=== PATIENT | male | born 1950 | race Caucasian/White ===

== ENCOUNTER 2019-07-22 06:30 | Day surgery (SDC) | payer OTHER ==
[2019-07-17 14:26] VITALS: BMI 48.9
[2019-07-22] MEDS: TROPICAMIDE 1% OPHTH SOLN 15 ML BOTTLE ONE ×3 (07:00→07:10)
[2019-07-22] MEDS: CIPROFLOXACIN 0.3% EYE DROPS 5 ML BOTTLE ONE ×3 (07:00→07:10)
[2019-07-22] MEDS: PHENYLEPHRINE 2.5% OPHTH SOLN 15 ML BOTTLE ONE ×3 (07:00→07:10)
[2019-07-22] MEDS: CYCLOPENTOLATE 2% OPHTH SOLN 2 ML BOTTLE ONE ×3 (07:00→07:10)
[2019-07-22] MEDS ORDERED: LIDOCAINE 1% P/F 10 MG/ML VIAL ONE (07:20)
[2019-07-22] MEDS ORDERED: TETRACAINE 0.5% OPHTH SOLN 2 ML BOTTLE ONE (07:20)
[2019-07-22] MEDS ORDERED: BSS (NA/CA/MG/K) BALANCED SALT SOLUTION OPHTH SOLN 15 ML BOTTLE ONE (07:20)
[2019-07-22] MEDS ORDERED: NEO/POLYMYX B SULF/DEXAMETH OPHTHALMIC 5ML BOTTLE ONE (07:21)
[2019-07-22] MEDS ORDERED: EPINEPHrine/PF 1 MG/1 ML (1:1,000) AMPULE ONE (07:21)
[2019-07-22] MEDS ORDERED: CARBACHOL 0.01% INTRA-OCULAR 1.5 ML VIAL ONE (07:21)
[2019-07-22] MEDS ORDERED: MIDAZOLAM HCL 2 MG/2 ML SINGLE DOSE VIAL ONE (07:58)
[2019-07-22 09:12] VITALS: BP 122/68; PULSE 65; TEMP 98
--- NOTE | 2019-07-22 13:55 | OP ---
DATE OF OPERATION: 07/22/2019 OPERATIVE PROCEDURE: Lens Phacoemulsification with Posterior Chamber Intraocular Lens Placement Left Eye. PREOPERATIVE DIAGNOSIS: Visually Significant Cataract of Left Eye. POSTOPERATIVE DIAGNOSIS: Visually Significant Cataract of Left Eye. SURGEON: Esau Camargo M.D. ANESTHESIA: MAC PROCEDURE: The patient was brought to the operating room and placed under monitored anesthesia care by Anesthesia. A drop of Tetracaine was then placed over the left eye. The patient was then prepped and draped in the usual sterile manner. A speculum was then placed over the left eye. The eye was then well irrigated with copious amounts of BSS (balanced salt solution). The operating microscope was then moved into position. A paracentesis was performed using a 15 degree blade. At this point 0.5 mL of 1% preservative-free lidocaine was injected into the anterior chamber. Amvisc plus was then injected into the anterior chamber. A clear corneal incision was then formed using a 2.2 mm keratome. A capsulorrhexis was then performed in a continuous circular fashion beginning with a cystotome, completed with an Utratas forceps. Hydrodissection was then performed using BSS on a cannula. The phaco probe was then introduced through the corneal wound and the cataract was removed using the phaco chop technique. Approximately 3 seconds of absolute phaco time was used. The remaining cortex was then removed using irrigation and aspiration with an I/A probe. The capsule was then filled with regular Amvisc and the capsule was noted to be intact. A previously selected foldable posterior chamber intraocular lens was then injected into the capsule through the corneal wound using a lens injector. It was then dialed into position using a Sinskey hook. The Amvisc was then removed using irrigation and aspiration. Miostat was then injected through the paracentesis to constrict the pupil. The paracentesis and corneal wound were then hydrated and noted to be water tight. A drop of Maxitrol was then placed over the eye. The speculum was removed and clear shield was taped over the eye. The patient tolerated the procedure well and there were no surgical complications. The patient was asked to follow up in my office the next day. ESAU CAMARGO M.D. [id number]
== END 2019-07-22 09:14 | disposition home or self-care (01) ==
LOC: FASU 06:30
PROVIDERS: ATTEND Ophthalmology
PROC: 08RK3JZ Replacement of Left Lens with Synthetic Substitute, Percutaneous Approach (ICD-10-PCS; principal; 2019-07-22 08:10)
DX: H26.8 Other specified cataract (principal)

== ENCOUNTER 2019-08-12 06:55 | Day surgery (SDC) | payer OTHER ==
[2019-08-11 11:11] VITALS: BMI 48.9
[2019-08-12] MEDS: TROPICAMIDE 1% OPHTH SOLN 15 ML BOTTLE ONE ×3 (07:30→07:40)
[2019-08-12] MEDS: PHENYLEPHRINE 2.5% OPHTH SOLN 15 ML BOTTLE ONE ×3 (07:30→07:40)
[2019-08-12] MEDS: CYCLOPENTOLATE HCL 1% OPHTH SOLN 2 ML BOTTLE ONE ×3 (07:30→07:40)
[2019-08-12] MEDS: CIPROFLOXACIN 0.3% EYE DROPS 5 ML BOTTLE ONE ×3 (07:30→07:40)
[2019-08-12] MEDS ORDERED: NEO/POLYMYX B SULF/DEXAMETH OPHTHALMIC 5ML BOTTLE ONE (07:31)
[2019-08-12] MEDS ORDERED: CARBACHOL 0.01% INTRA-OCULAR 1.5 ML VIAL ONE (07:31)
[2019-08-12] MEDS ORDERED: LIDOCAINE 1% P/F 10 MG/ML VIAL ONE (07:31)
[2019-08-12] MEDS ORDERED: BSS (NA/CA/MG/K) BALANCED SALT SOLUTION OPHTH SOLN 15 ML BOTTLE ONE (07:31)
[2019-08-12] MEDS ORDERED: MIDAZOLAM HCL 2 MG/2 ML SINGLE DOSE VIAL ONE ×2 (08:43→08:57)
[2019-08-12 09:30] VITALS: TEMP 97.9
--- NOTE | 2019-08-12 09:53 | OP ---
DATE OF OPERATION: 08/12/2019 OPERATIVE PROCEDURE: Lens phacoemulsification with posterior chamber intraocular lens placement, right eye. PREOPERATIVE DIAGNOSIS: Visually significant cataract of right eye. POSTOPERATIVE DIAGNOSIS: Visually significant cataract of right eye. SURGEON: Esau Camargo MD ANESTHESIA: MAC. PROCEDURE: The patient was brought to the operating room and placed under monitored anesthesia care by Anesthesia. A drop of tetracaine was then placed over the right eye. The patient was then prepped and draped in the usual sterile manner. A speculum was then placed over the right eye. The eye was then well irrigated with copious amounts of BSS (balanced salt solution). The operating microscope was then moved into position. A paracentesis was performed using a 15-degree blade. At this point 0.5 mL of 1% preservative- free lidocaine was injected into the anterior chamber. Amvisc Plus was then injected into the anterior chamber. A clear corneal incision was then formed using a 2.2-mm keratome. A capsulorrhexis was then performed in a continuous circular fashion beginning with a cystotome completed with an Utratas forceps. Hydrodissection was then performed using BSS on a cannula. The phaco probe was then introduced through the corneal wound and the cataract was removed using the phaco chop technique. Approximately 3 seconds of absolute phaco time was used. The remaining cortex was then removed using irrigation and aspiration with an I/A probe. The capsule was then filled with regular Amvisc and the capsule was noted to be intact. A previously selected foldable posterior chamber intraocular lens was then injected into the capsule through the corneal wound using a lens injector. It was then dialed into position using a Sinskey hook. The Amvisc was then removed using irrigation and aspiration. Miostat was then injected through the paracentesis to constrict the pupil. The paracentesis and corneal wound were then hydrated and noted to be watertight. A drop of Maxitrol was then placed over the eye. The speculum was removed and clear shield was taped over the eye. The patient tolerated the procedure well and there were no surgical complications. The patient was asked to follow up in my office the next day. ESAU CAMARGO M.D. [id number]
[2019-08-12 09:57] VITALS: BP 120/69; PULSE 88
== END 2019-08-12 10:05 | disposition home or self-care (01) ==
LOC: FASU 06:55
PROVIDERS: ATTEND Ophthalmology
PROC: 08RJ3JZ Replacement of Right Lens with Synthetic Substitute, Percutaneous Approach (ICD-10-PCS; principal; 2019-08-12 09:01)
DX: H26.8 Other specified cataract (principal)

== ENCOUNTER 2022-07-18 04:19 | Day surgery (SDC) | payer OTHER ==
[2022-07-13 14:46] VITALS: BMI 40.3
[2022-07-18] MEDS ORDERED: LIDOCAINE HCL 2% JELLY 11 ML TP ONE (13:34)
[2022-07-18] MEDS ORDERED: PROPOFOL 20 ML ONE (13:59)
[2022-07-18] MEDS ORDERED: MIDAZOLAM HCL 2 MG/2 ML SINGLE DOSE VIAL ONE (13:59)
[2022-07-18] MEDS ORDERED: ONDANSETRON 4 MG/2 ML VIAL IVPUSH PRN (14:24)
[2022-07-18] MEDS ORDERED: oxyCODONE HCL 5 MG TABLET PO PRN (14:24)
[2022-07-18] MEDS ORDERED: ceFAZolin SODIUM 1 GM VIAL IVPB ONE (14:26)
[2022-07-18] MEDS ORDERED: ceFAZolin SODIUM 1 GM VIAL ONE (14:27)
[2022-07-18] MEDS ORDERED: LACTATED RINGERS SOLUTION 1,000 ML IV SCH (14:30)
[2022-07-18 18:45] VITALS: RESP 18
[2022-07-18 18:55] VITALS: BP 150/70; PULSE 78; TEMP 98
== END 2022-07-18 18:00 | disposition home or self-care (01) ==
LOC: JASU-SURG 04:19
PROVIDERS: ATTEND Urology
PROC: 0T7D8DZ Dilation of Urethra with Intraluminal Device, Via Natural or Artificial Opening Endoscopic (ICD-10-PCS; principal; 2022-07-18 14:00)
DX: N40.0 Benign prostatic hyperplasia without lower urinary tract symptoms (principal)
CPT/HCPCS: C9740; L8699; 94760

== ENCOUNTER 2023-01-08 09:27 | Day surgery (SDC) | payer OTHER ==
[2023-01-08] MEDS ORDERED: CEFAZOLIN 2 GM in DEXTROSE 5%-WATER - 50 ML IVPB ONE (09:35)
[2023-01-08] MEDS ORDERED: CELECOXIB 200 MG CAPSULE PO ONE (09:35)
[2023-01-08] MEDS ORDERED: TRANEXAMIC ACID 1000 MG/10 ML VIAL IVPUSH ONE (09:35)
[2023-01-08 10:06] VITALS: BMI 41.0
[2023-01-08] MEDS ORDERED: VANCOMYCIN 1,000 MG VIAL (RESTRICTED TO ID ONLY) ONE (10:13)
[2023-01-08] MEDS ORDERED: ceFAZolin SODIUM 1 GM VIAL ONE ×3 (10:13→12:20)
[2023-01-08] MEDS ORDERED: CELECOXIB 200 MG CAPSULE ONE (10:18)
[2023-01-08] MEDS ORDERED: MIDAZOLAM HCL 2 MG/2 ML SINGLE DOSE VIAL ONE (10:22)
[2023-01-08] MEDS ORDERED: BUPIVACAINE HCL/PF 0.5% (5 MG/ML) 30 ML VIAL IJ ONE (10:22)
[2023-01-08] MEDS ORDERED: ACETAMINOPHEN INJECTION 100 ML IVPB ONE (10:23)
[2023-01-08] MEDS ORDERED: DEXAMETHASONE SOD PHOSPHATE/PF 10 MG/ML SDV ONE (10:23)
[2023-01-08] MEDS ORDERED: ACETAMINOPHEN 325 MG TABLET (FP) PO PRN (10:25)
[2023-01-08] MEDS ORDERED: oxyCODONE HCL 5 MG TABLET PO PRN (10:25)
[2023-01-08] MEDS ORDERED: ONDANSETRON 4 MG/2 ML VIAL IVPUSH PRN (10:25)
[2023-01-08] MEDS ORDERED: LACTATED RINGERS SOLUTION 1,000 ML IV SCH (10:30)
[2023-01-08] MEDS ORDERED: PROPOFOL 60 ML ONE (12:12)
[2023-01-08] MEDS ORDERED: TRANEXAMIC ACID 1000 MG/10 ML VIAL ONE (12:17)
[2023-01-08] MEDS ORDERED: KETOROLAC TROMETHAMINE 30 MG/1 ML VIAL ONE (12:31)
[2023-01-08] MEDS ORDERED: DEXAMETHASONE SOD PHOSPHATE 4 MG/1 ML VIAL ONE (12:31)
[2023-01-08] MEDS ORDERED: ONDANSETRON 4 MG/2 ML VIAL ONE (12:31)
[2023-01-08] MEDS ORDERED: VANCOMYCIN 1,000 MG VIAL (RESTRICTED TO ID ONLY) IVPB ONE (13:21)
[2023-01-08] MEDS: oxyCODONE HCL 5 MG TABLET PO PRN ×2 (18:02→21:28)
[2023-01-08] MEDS: CEFAZOLIN SODIUM 2 GM in DEXTROSE 5%-WATER 100 ML IVPB SCH (20:55)
[2023-01-08] MEDS: SENNOSIDES/DOCUSATE COMBO (SENNA PLUS) TABLET (UD) PO SCH (21:29)
[2023-01-08] MEDS ORDERED: FAMOTIDINE 20 MG TABLET PO SCH (22:00)
[2023-01-08] MEDS: OXYMETAZOLINE 0.05% NASAL SOLUTION 15 ML BOTTLE NS SCH (22:22)
[2023-01-09] MEDS: oxyCODONE HCL 5 MG TABLET PO PRN ×3 (01:26→12:31)
[2023-01-09] MEDS: CEFAZOLIN SODIUM 2 GM in DEXTROSE 5%-WATER 100 ML IVPB SCH (05:00)
[2023-01-09 08:19] LABS: HEMATOCRIT 41.9 % (35.4-49); HEMOGLOBIN 14.2 G/dL (11.7-16.9); MCH 29.9 pg (25.7-33.7); MCHC 33.8 g/dl (32.0-35.9); MEAN CELL VOLUME 88.3 fl (80-96); MEAN PLT VOLUME 8.1 fl (7.5-11.1); PLATELET COUNT 199.6 10^3/uL (134-434); RBC 4.74 10^6/uL (4.00-5.60); RDW 14.6 % (11.9-15.9); WHITE BLOOD COUNT 10.9 10^3/uL (4.0-10.8)
[2023-01-09] MEDS: SENNOSIDES/DOCUSATE COMBO (SENNA PLUS) TABLET (UD) PO SCH (09:19)
[2023-01-09] MEDS: OXYMETAZOLINE 0.05% NASAL SOLUTION 15 ML BOTTLE NS SCH (09:22)
[2023-01-09] MEDS ORDERED: [UNRECOGNIZED DRUG - OTHER] PO SCH (10:00)
[2023-01-09] MEDS ORDERED: MULTIVITAMINS (DAILY MVI) TABLET (FP) PO SCH (10:00)
[2023-01-09] MEDS ORDERED: FLUTICASONE/UMECLIDIN/VILANTER(200-62.5-25 TRELEGY ELLIPTA) INAHLER IH SCH (10:00)
[2023-01-09] MEDS ORDERED: IRBESARTAN PO SCH (10:00)
[2023-01-09] MEDS ORDERED: PANTOPRAZOLE 40 MG TABLET PO SCH (10:00)
[2023-01-09] MEDS ORDERED: APIXABAN 5 MG TABLET PO SCH (10:00)
[2023-01-09] MEDS ORDERED: LOSARTAN 50MG/HCTZ 12.5MG 1 TAB PO SCH (10:00)
[2023-01-09] MEDS ORDERED: HYDROCHLOROTHIAZIDE PO SCH (10:00)
[2023-01-09 17:40] VITALS: BP 128/70; PULSE 73; RESP 19; TEMP 98.8
== END 2023-01-09 18:41 | disposition home health service (06) ==
LOC: FASUSAT 09:27 → FM/S 15:56 → FASUSAT 01-09 18:41
PROVIDERS: ATTEND Orthopaedic Surgery
PROC: 8E0Y0CZ Robotic Assisted Procedure of Lower Extremity, Open Approach (ICD-10-PCS; 2023-01-08)
PROC: 0SRD0J9 Replacement of Left Knee Joint with Synthetic Substitute, Cemented, Open Approach (ICD-10-PCS; principal; 2023-01-08 12:26)
DX: M17.12 Unilateral primary osteoarthritis, left knee (principal)
CPT/HCPCS: 20985; 27447; C1776; S2900; 36415; 73560-TC-LT-FY; 85027; 94760; 97010-GP; 97116-GP; 97162-GP; C1713

== ENCOUNTER 2023-05-14 07:34 | Day surgery (SDC) | payer OTHER ==
[2023-05-07 11:55] VITALS: BMI 36.2
[2023-05-14] MEDS ORDERED: MIDAZOLAM HCL 2 MG/2 ML SINGLE DOSE VIAL ONE (08:24)
[2023-05-14] MEDS ORDERED: BUPIVACAINE HCL/PF 0.5% (5MG/ML) 10 ML VIAL ONE (08:24)
[2023-05-14] MEDS ORDERED: BUPIVACAINE LIPOSOME/PF (EXPAREL) 266 MG/20 ML VIAL ONE (08:24)
[2023-05-14] MEDS ORDERED: ceFAZolin SODIUM 1 GM VIAL ONE ×2 (08:26→09:28)
[2023-05-14] MEDS ORDERED: VANCOMYCIN 1,000 MG VIAL (RESTRICTED TO ID ONLY) ONE (08:26)
[2023-05-14] MEDS ORDERED: DEXAMETHASONE SOD PHOSPHATE 4 MG/1 ML VIAL ONE (09:30)
[2023-05-14] MEDS ORDERED: ONDANSETRON 4 MG/2 ML VIAL ONE (09:30)
[2023-05-14] MEDS ORDERED: CEFAZOLIN 2 GM in DEXTROSE 5%-WATER - 50 ML IVPB ONE (09:45)
[2023-05-14] MEDS ORDERED: CELECOXIB 200 MG CAPSULE PO ONE (09:45)
[2023-05-14] MEDS ORDERED: VANCOMYCIN 1,000 MG VIAL (RESTRICTED TO ID ONLY) IVPB ONE (10:36)
[2023-05-14] MEDS ORDERED: TRANEXAMIC ACID 1000 MG/10 ML VIAL IVPUSH ONE (10:45)
[2023-05-14] MEDS ORDERED: LACTATED RINGERS SOLUTION 1,000 ML IV SCH (11:15)
[2023-05-14] MEDS ORDERED: ONDANSETRON 4 MG/2 ML VIAL IVPUSH PRN (11:39)
[2023-05-14] MEDS ORDERED: ACETAMINOPHEN 1000 MG/100 ML BAG IVPB ONE (11:40)
[2023-05-14] MEDS ORDERED: oxyCODONE HCL 5 MG TABLET PO PRN (11:40)
[2023-05-14] MEDS ORDERED: ACETAMINOPHEN INJECTION 100 ML IVPB ONE (11:55)
[2023-05-14] MEDS ORDERED: KETOROLAC TROMETHAMINE 30 MG/1 ML VIAL ONE (12:15)
[2023-05-14] MEDS: KETOROLAC TROMETHAMINE 30 MG/1 ML VIAL IVPUSH SCH ×2 (12:19→17:10)
[2023-05-14] MEDS: ACETAMINOPHEN 500 MG TABLET (FP) PO SCH ×2 (17:10→23:42)
[2023-05-14] MEDS: CEFAZOLIN SODIUM 2 GM in DEXTROSE 5%-WATER 100 ML IVPB SCH (17:11)
[2023-05-14] MEDS ORDERED: FAMOTIDINE 20 MG TABLET PO SCH (22:00)
[2023-05-14] MEDS: oxyCODONE HCL 10 MG SUSTAINED ACTING TABLET PO SCH (22:01)
[2023-05-14] MEDS: SENNOSIDES/DOCUSATE COMBO (SENNA PLUS) TABLET (UD) PO SCH (22:03)
[2023-05-15 00:19] VITALS: RESP 18
[2023-05-15] MEDS: CEFAZOLIN SODIUM 2 GM in DEXTROSE 5%-WATER 100 ML IVPB SCH (02:11)
[2023-05-15] MEDS: oxyCODONE HCL 5 MG TABLET PO PRN ×2 (06:15→12:43)
[2023-05-15] MEDS: ACETAMINOPHEN 500 MG TABLET (FP) PO SCH ×2 (06:16→12:42)
[2023-05-15 07:53] LABS: HEMATOCRIT 39.5 % (35.4-49); MCHC 32.9 g/dl (32.0-35.9); MEAN PLT VOLUME 7.9 fl (7.5-11.1); PLATELET COUNT 203.9 10^3/uL (134-434); RBC 4.49 10^6/uL (4.00-5.60); RDW 15.3 % (11.9-15.9); WHITE BLOOD COUNT 8.3 10^3/uL (4.0-10.8)
[2023-05-15] MEDS ORDERED: [UNRECOGNIZED DRUG - OTHER] PO SCH (10:00)
[2023-05-15] MEDS ORDERED: HYDROCHLOROTHIAZIDE PO SCH (10:00)
[2023-05-15] MEDS ORDERED: APIXABAN 5 MG TABLET PO SCH (10:00)
[2023-05-15] MEDS ORDERED: IRBESARTAN PO SCH (10:00)
[2023-05-15] MEDS ORDERED: LOSARTAN 50MG/HCTZ 12.5MG 1 TAB PO SCH (10:00)
[2023-05-15] MEDS ORDERED: FLUTICASONE/UMECLIDIN/VILANTER(200-62.5-25 TRELEGY ELLIPTA) INAHLER IH SCH (10:00)
[2023-05-15] MEDS: oxyCODONE HCL 10 MG SUSTAINED ACTING TABLET PO SCH (10:05)
[2023-05-15] MEDS: SENNOSIDES/DOCUSATE COMBO (SENNA PLUS) TABLET (UD) PO SCH (10:05)
[2023-05-15 12:56] VITALS: BP 134/53; PULSE 68; TEMP 98.1
== END 2023-05-15 16:07 | disposition home or self-care (01) ==
LOC: FASUSAT 07:34 → FM/S 12:35 → FASUSAT 05-15 16:07
PROVIDERS: ATTEND Orthopaedic Surgery
PROC: 0SRD0JA Replacement of Left Knee Joint with Synthetic Substitute, Uncemented, Open Approach (ICD-10-PCS; 2023-05-14)
PROC: 0SPD0JZ Removal of Synthetic Substitute from Left Knee Joint, Open Approach (ICD-10-PCS; principal; 2023-05-14 09:40)
DX: T84.033A Mechanical loosening of internal left knee prosthetic joint, initial encounter (principal); Y79.2 Prosthetic and other implants, materials and accessory orthopedic devices associated with adverse incidents; Y92.9 Unspecified place or not applicable; Z96.652 Presence of left artificial knee joint
CPT/HCPCS: 36415; 73560-TC-LT-FY; 84295; 85027; 94660; 94760; 97010-GP; 97116-GP; 97161-GP; C1713; C1776; C1889

== ENCOUNTER 2025-05-06 06:23 | Day surgery (SDC) | payer OTHER ==
[2025-05-04 17:22] VITALS: BMI 35.0
[2025-05-06] MEDS ORDERED: LIDOCAINE HCL/PF 1% SDV 5ML VIAL ONE ×2 (07:29→11:28)
[2025-05-06] MEDS ORDERED: BUPIVACAINE HCL/PF 0.75% 10 ML VIAL ONE (07:29)
[2025-05-06 11:35] VITALS: RESP 20
[2025-05-06 12:40] VITALS: BP 136/76; PULSE 81; TEMP 97.5
== END 2025-05-06 12:43 | disposition home or self-care (01) ==
LOC: JASU-SURG 06:23
PROVIDERS: ATTEND Pain Medicine Pain Medicine
PROC: 3E0T33Z Introduction of Anti-inflammatory into Peripheral Nerves and Plexi, Percutaneous Approach (ICD-10-PCS; 2025-05-06)
PROC: 3E0T3BZ Introduction of Anesthetic Agent into Peripheral Nerves and Plexi, Percutaneous Approach (ICD-10-PCS; principal; 2025-05-06 12:15)
DX: M47.816 Spondylosis without myelopathy or radiculopathy, lumbar region (principal)
CPT/HCPCS: 76000-TC-FY